=== PATIENT | female | born 1960 | race Caucasian/White ===

== ENCOUNTER 2017-03-03 20:24 | Emergency (ER) | payer OTHER ==
[~2017-03-03] VITALS: Ht 160 cm; Wt 90.9 kg
[2017-03-03 20:27] VITALS: BP 216/112; PULSE 71; RESP 20; O2SAT 99
[2017-03-03 20:56] VITALS: BP 209/72; PULSE 54; RESP 19; O2SAT 97
--- NOTE | 2017-03-03 21:22 | ED.REPORT ---
HPI-Abd Pain F 2 and Over Date of Service March 03, 2017 ED Provider: Rodrigo Harvey MD Patient is a 56-year-old female with history of hypertension, who presents to [facility] Emergency Department complaining of high blood pressure. Patient states she has been diagnosed with hypertension about 5 years ago and was started on lisinopril 5 mg daily, however later on she developed side effect to medication and started experiencing throat swelling and numbness so she stopped using it about 2 years ago. She has been seen by a naturopathic doctor who recommended to take carditone for blood pressure control. She has been taking it daily for a while and states that her blood pressure was controlled, however, she started noticing increase in blood pressure about 3 weeks ago. Patient states that tonight she started experiencing chest pressure and her will blood pressure was around 180/101 so she decided to go to emergency room for evaluation. Patient denies diaphoresis, heart palpitations, nausea, vomiting, diarrhea. Patient denies any alcohol, tobacco, or illicit drug abuse. Patient denies any other health problems. Patient denies family history for cardiovascular disease. Nursing Notes Stated Complaint: HIGH BLOOD PRESSURE Chief Complaint: General Complaint Nursing Notes Reviewed: Yes Allergies: Coded Allergies: Penicillins (Verified Allergy, Mild, 03/03/17) codeine (Verified Allergy, Mild, 03/03/17) latex (Verified Allergy, Mild, 03/03/17) lisinopril (Verified Allergy, Mild, 03/03/17) General Time Seen by MD: 21:09 Chief Complaint Other (high blood pressure) Hx Obtained from: Patient Arrived by: Walk-in Sudden in Onset?: No Onset Occurred: 5 - 8 hours ago Past Medical History Hypertension Smoking History Never Smoker Review of Systems A comprehensive review of systems has been conducted with the family and was found to be negative except what is mentioned in the history of present illness. Physical Exam Initial Vital Signs Vital Signs (First) Date Time Temp Pulse Resp B/P Pulse Ox O2 Delivery O2 Flow Rate FiO2 03/03/17 20:27 36.5 71 20 216/112 99 Room Air Initial VS: Reviewed, Vital signs abnormal Head / Eyes: Atraumatic, Normocephalic, PERRL ENT: Mucous membranes moist, Conjunctiva normal, No scleral icterus Neck: Supple, Non-tender, Full range of motion Lymphatic: No lymphadenopathy Extremities: Vascular intact, Neuro intact, No swelling, No tenderness Skin: Warm, Dry, No cyanosis Neurologic: Alert, Oriented, Nonfocal Psychiatric: Mood/affect normal, Behavior normal Respiratory / Chest: Breath sounds NL, No rales, No rhonchi, No wheezing Cardiovascular: Heart rate NL, Regular rhythm, No murmurs Abdomen: Atraumatic, Soft, Non-tender, BS normoactive Interpretation & Diagnostics Lab Results Interpretation Result Diagram: 03/03/17212403/03/172124 Test 03/03/17 21:25 03/03/17 22:45 03/03/17 23:36 White Blood Count 8.2th/mm3 (3.8-10.1) Red Blood Count 4.46mil/mm3 (3.90-5.20) Hemoglobin 13.0g/dL (12.0-15.6) Hematocrit 39.1% (35.0-46.0) Mean Corpuscular Volume 87.7fL (81-100) Mean Corpuscular Hemoglobin 29.1pg (27.0-35.0) Mean Corpuscular Hemoglobin Concent 33.2% (32.0-37.0) Red Cell Distribution Width 14.2% (12.3-15.4) Platelet Count 304bil/L (150-400) Neutrophils (%) (Auto) 47.0% (40-74) Lymphocytes (%) (Auto) 40.1% (14-46) Monocytes (%) (Auto) 8.7% (4-12) Eosinophils (%) (Auto) 2.5% (0-5) Basophils (%) (Auto) 1.5% (0-3) Sodium Level 141mEq/L (134-144) Potassium Level 4.5mEq/L (3.5-5.2) Chloride Level 101mEq/L (97-108) Carbon Dioxide Level 26mmol/L (18-29) Blood Urea Nitrogen 17mg/dL (6-24) Creatinine 0.79mg/dL (0.57-1.00) Estimat Glomerular Filtration Rate 108mL/min (>59) Glucose Level 112mg/dL (60-99) Calcium Level 9.8mg/dL (8.5-10.1) Magnesium Level 2.2mg/dL (1.6-2.6) Total Bilirubin 0.2mg/dL (0.0-1.2) Aspartate Amino Transf (AST/SGOT) 18U/L (0-50) Alanine Aminotransferase (ALT/SGPT) 19U/L (0-32) Alkaline Phosphatase 69U/L (25-150) Total Protein 7.1g/dL (6.4-8.4) Albumin 4.5g/dL (3.4-5.0) Hold Scott Top Tube Received (Received) Hold Urine Received (Received) Troponin T 0.010ug/L (0.0-0.011) Re-Eval/Medical Decision Med Decision/Clinical Course In summary this is a 56-year-old female without significant past medical history who presented with hypertension and chest pressure/discomfort. Patient does not have known risk factors for coronary artery disease except high blood pressure. Her blood pressure has normalized while being in ER for observation. Blood work unremarkable. Troponin negative 2. EKG revealed sinus rhythm without ischemic changes. Chest x-ray unremarkable. At this point, we felt it would be safe to discharge patient home with close follow up with her PCP for further evaluation and management of her hypertension and risk stratification for coronary artery disease. Counseled Regarding: Diagnosis, Lab results, Need for follow-up, When/why to return to ED Discharge & Departure Impression: Primary Impression: Chest pain with low risk of acute coronary syndrome Additional Impression: Hypertensive urgency Disposition: Home Discharge Condition Condition: Stable Patient Instructions: Acute Coronary Syndrome (GEN), Chronic Hypertension (GEN) Additional Instructions: Thank you for seeking care at the emergency room today. You had high blood pressure today. We would like you to follow up with your primary care provider for further evaluation and treatment. We believe you need to be on medication for blood pressure control. The goal is blood pressure 140/ 90 or below. You also had chest pressure/discomfort. We do not believe you have a heart attack but we would like you to have a work up for coronary artery disease done by your PCP. Meanwhile, we would like you to be aware of heart attack symptoms. If you develop any of the below mentioned symptoms, please call 911 or go to emergency room immediately. These six heart attack symptoms are common in women: Chest pain or discomfort. Chest pain is the most common heart attack symptom , but some women may experience it differently than men. Pain in your arm(s), back, neck, or jaw. Stomach pain. Shortness of breath, nausea, or lightheadedness. Sweating. Fatigue. Thank you for letting us take part in your care today. Referrals: Carmen Retana MD (PCP) Georgette Regalado (Family) EDSupervising Provider for APC: Rodrigo Harvey MD Attending Statement The patient was seen and examined together with Dr. Fatimah Hallman and I agree with the history, exam and plan as outlined in the note above. Carmen Retana MD, Howard L MD March 03, 2017 21:22 Fatimah Hallman DO March 03, 2017 22:26
[2017-03-03 21:36] LABS: BASOPHILS % (AUTO) 1.5 % (0-3); EOSINOPHILS % (AUTO) 2.5 % (0-5); MONOCYTES % (AUTO) 8.7 % (4-12); Mean Corpuscular Hemoglobin 29.1 pg (27.0-35.0); Mean Corpuscular Volume 87.7 fL (81-100); Platelet Count 304 bil/L (150-400)
[2017-03-03 21:57] LABS: TROPONIN T 0.01 ug/L (0.0-0.011)
--- NOTE | 2017-03-03 22:00 | DRSVH ---
PROCEDURE: X-RAY CHEST ONE VIEW, PORTABLE ([id number]) INDICATIONS: HTN, Chest pressure TECHNIQUE: One view of the chest was acquired. COMPARISON: None. FINDINGS: Surgical changes and devices: None. Lungs and pleura: No pleural effusions or pneumothorax. Lungs are clear. Mediastinum: Mediastinal contours appear normal. Heart size is normal. Bones and chest wall: No suspicious bony lesions. Overlying soft tissues appear unremarkable. IMPRESSION: No acute cardiopulmonary findings. Dictated by: Sierra Guzmán M.D. on 03/03/2017 at 21:58 Approved by: Sierra Guzmán M.D. on 03/03/2017 at 21:59
[2017-03-03 22:08] LABS: Magnesium 2.2 mg/dL (1.6-2.6)
[2017-03-04 01:11] VITALS: BP 155/85; PULSE 57; RESP 24; O2SAT 96
== END 2017-03-04 01:12 | disposition home or self-care (01) ==
LOC: SED 20:24
DX: R07.9 Chest pain, unspecified (principal); I16.0 Hypertensive urgency; Z88.0 Allergy status to penicillin; Z88.5 Allergy status to narcotic agent; Z88.8 Allergy status to other drugs, medicaments and biological substances; Z91.040 Latex allergy status